=== PATIENT | female | born 1955 | race Caucasian/White ===

== ENCOUNTER → 2017-07-06 | Day surgery (SDC) | payer OTHER ==
[~2017-07-06] MED LIST: BUPR150CR PO; CELE1CAP8 PO; ENBR50IN2 SQ; LANS30CA PO; LEVO.05 PO; LIDOCAINE HCL 1% 30 ML VIAL NERV BLOCK ONE; PROPOFOL 200 MG/20 ML AMP IV ONE; SODIUM CHLORIDE 0.9% 10 ML VIAL ONE; TRAZ50TA12 PO; TRIAMCINOLONE ACETONIDE 40 MG/ML VIAL NERV BLOCK ONE
--- NOTE | 2017-07-06 08:39 | M6 ---
cc: Estiven WAHL DATE 07/06/2017 DATE OF 1955 PROCEDURE Fluoroscopically guided T1-T2 interlaminar epidural steroid injection. PROCEDURE NOTE History and physical was completed and signed. Consent was signed. Procedure site was marked. Medications were listed and reconciled. Pain score was recorded. Allergies were noted. Time out was taken. Fluoroscopy time was recorded where applicable. Sedation was administered or directed by Dr. Wahl. The patient was given oxygen. The patient was monitored by a registered nurse. Total procedure time was greater than 15 minutes. IV was started, blood pressure cuff, pulse oximeter and EKG were applied. The patient was placed in the prone position on a Augustine table, sedated with small amounts of propofol titrated to effect. Vital signs were monitored and remained stable throughout the procedure. The cervical area was prepped with alcohol and 10% Betadine solution and draped with sterile drapes. Fluoroscopy was used to visualize the T1-T2 interlaminar space. The skin was infiltrated with 1% Xylocaine using a 27 gauge needle. Then a 3-1/2-inch 18-gauge Benoit needle was advanced using fluoroscopic guidance and the [id number] technique into the epidural space at T1-T2 slightly to the right of the midline. There was negative aspiration for blood or any other type of fluid. The patient was given 6 mL of normal saline and 60 mg of Kenalog. Following this, the patient was taken to the recovery room with stable vital signs neurologically intact. MD ERIKA Robertson/ROLDAN /8:22 AM /8:31 AM
== END | disposition home or self-care (01) ==
LOC: PHSDC 06:44
PROVIDERS: ATTEND Pain Medicine Interventional Pain Medicine
DX: M54.6 Pain in thoracic spine (principal)
CPT/HCPCS: 62321; 99152; J3301

== ENCOUNTER → 2017-10-26 | Day surgery (SDC) | payer OTHER ==
[~2017-10-26] MED LIST changes: -BUPR150CR PO; -CELE1CAP8 PO; -ENBR50IN2 SQ; -LANS30CA PO; -LEVO.05 PO; +LIDOCAINE HCL 1% 30 ML VIAL INFIL; -LIDOCAINE HCL 1% 30 ML VIAL NERV BLOCK ONE; +MEPERIDINE HCL 25 MG/ML VIAL IV; +PROPOFOL 200 MG/20 ML AMP IV; -PROPOFOL 200 MG/20 ML AMP IV ONE; +SODIUM CHLORIDE 0.9% 10 ML VIAL; -SODIUM CHLORIDE 0.9% 10 ML VIAL ONE; -TRAZ50TA12 PO; +TRIAMCINOLONE ACETONIDE 40 MG/ML VIAL NERV BLOCK; -TRIAMCINOLONE ACETONIDE 40 MG/ML VIAL NERV BLOCK ONE
== END | disposition home or self-care (01) ==
LOC: PHSDC 06:41
DX: M54.2 Cervicalgia (principal); M79.601 Pain in right arm; M54.12 Radiculopathy, cervical region
CPT/HCPCS: 62321; 99152